=== PATIENT | male | born 1980 | race Caucasian/White ===

== ENCOUNTER 2021-01-21 20:19 | Emergency (ER) | payer OTHER ==
[2021-01-21] MEDS: SODIUM CHLORIDE 1,000 ML IV STA ×2 (20:40→22:00)
[2021-01-21 20:42] VITALS: BP 129/75; PULSE 88; TEMP 98.7; BMI 20.1
[2021-01-21] MEDS ORDERED: PANTOPRAZOLE SODIUM 40 MG in SODIUM CHLORIDE 100 ML IVPB ONE (20:42)
[2021-01-21] MEDS ORDERED: ONDANSETRON 4 MG/2 ML VIAL IVPUSH ONE (20:42)
[2021-01-21] MEDS ORDERED: HYDROmorphone HCL CARPU-JECT 1 MG/1 ML DISP.SYRIN IVPUSH ONE (20:42)
[2021-01-21] MEDS ORDERED: HYDROmorphone HCL/PF 1 MG/ML VIAL ONE (20:52)
[2021-01-21] MEDS ORDERED: PANTOPRAZOLE SODIUM 40 MG VIAL ONE (20:52)
[2021-01-21] MEDS ORDERED: ONDANSETRON 4 MG/2 ML VIAL ONE (20:52)
[2021-01-21 21:12] LABS: HEMATOCRIT 46.5 % (35.4-49); HEMOGLOBIN 16.4 GM/dl (11.7-16.9); MCH 35.3 pg (25.7-33.7); MCHC 35.1 g/dl (32.0-35.9); MEAN CELL VOLUME 100.6 fl (80-96); MEAN PLT VOLUME 7.7 fl (7.5-11.1); PLATELET COUNT 226 10^3/uL (134-434); RBC 4.63 M/mm3 (4.00-5.60); RDW 11.9 % (11.9-15.9); WHITE BLOOD COUNT 12.8 K/mm3 (4.0-10.8)
[2021-01-21 21:25] LABS: PLATELET ESTIMATE ADEQUATE
[2021-01-21] MEDS ORDERED: PROCHLORPERAZINE INJECTION 10 MG/2 ML VIAL IVPB ONE (21:26)
[2021-01-21] MEDS ORDERED: PROCHLORPERAZINE INJECTION 10 MG/2 ML VIAL ONE (21:27)
[2021-01-21 21:35] LABS: ALBUMIN 4.7 g/dl (3.4-5.0); BILIRUBIN,TOTAL 0.8 mg/dl (0.2-1); CALCIUM 9.5 mg/dl (8.5-10); CREATININE 0.8 mg/dl (0.55-1.3); TOT PROT 7.2 g/dl (6.4-8.2)
[2021-01-21 23:29] LABS: EPITHELIAL CELLS RARE /hpf
== END 2021-01-22 00:02 | disposition home or self-care (01) ==
LOC: FER 20:19
PROC: 3E033GC Introduction of Other Therapeutic Substance into Peripheral Vein, Percutaneous Approach (ICD-10-PCS; principal; 2021-01-21)
DX: K29.70 Gastritis, unspecified, without bleeding (principal)
CPT/HCPCS: 36415; 71260-TC; 74177-TC; 80053; 81003; 81015; 83690; 85025; 87086; 96365; 96375; 99285-25; C9803; U0003; U0005

== ENCOUNTER 2021-01-22 12:42 | Inpatient (IN) | payer OTHER ==
[2021-01-22 12:54] VITALS: TEMP 99
[2021-01-22] MEDS ORDERED: FAMOTIDINE 20 MG/50 ML IVPB 20 MG/50 ML MG IVPB ONE ×2 (13:17→13:24)
[2021-01-22] MEDS ORDERED: HYDROmorphone HCL CARPU-JECT 1 MG/1 ML DISP.SYRIN IVPB ONE ×2 (13:17→19:34)
[2021-01-22] MEDS ORDERED: LACTATED RINGERS SOLUTION 1000 ML INFUS.BAG IV ONE (13:17)
[2021-01-22] MEDS ORDERED: ONDANSETRON 4 MG/2 ML VIAL IVPUSH ONE (13:19)
[2021-01-22] MEDS ORDERED: HYDROmorphone HCL/PF 1 MG/ML VIAL ONE ×3 (13:23→19:35)
[2021-01-22] MEDS ORDERED: ONDANSETRON 4 MG/2 ML VIAL ONE (13:24)
[2021-01-22] MEDS ORDERED: PROCHLORPERAZINE INJECTION 10 MG/2 ML VIAL IVPB ONE ×2 (14:07→18:38)
[2021-01-22] MEDS ORDERED: PROCHLORPERAZINE INJECTION 10 MG/2 ML VIAL ONE (14:10)
[2021-01-22] MEDS ORDERED: HYDROmorphone HCL CARPU-JECT 1 MG/1 ML DISP.SYRIN IVPUSH ONE (14:38)
[2021-01-22 14:55] LABS: ACTIVATED PTT 24.7 SECONDS (25.2-36.5)
[2021-01-22 14:55] LABS: HEMATOCRIT 47.4 % (35.4-49); HEMOGLOBIN 16.5 GM/dl (11.7-16.9); MCH 35.1 pg (25.7-33.7); MCHC 34.8 g/dl (32.0-35.9); MEAN PLT VOLUME 7.4 fl (7.5-11.1); PLATELET COUNT 251 10^3/uL (134-434); RBC 4.69 M/mm3 (4.00-5.60); RDW 11.8 % (11.9-15.9); WHITE BLOOD COUNT 16.4 K/mm3 (4.0-10.8)
[2021-01-22 15:00] LABS: INR 1.02 (0.82-1.09); PROTHROMBIN TIME (PATIENT) 11.4 SEC (10.2-13.0)
[2021-01-22 15:02] LABS: ALBUMIN 4.6 g/dl (3.4-5.0); ALK PHOS 47 U/L (45-117); ANION GAP 13 MMOL/L (8-16); BILIRUBIN,TOTAL 0.6 mg/dl (0.2-1); CALCIUM 9.2 mg/dl (8.5-10); CHLORIDE 104 mmol/L (98-107); CO2 19 mmol/L (21-32); CREATININE 0.8 mg/dl (0.55-1.3); GLUCOSE,RANDOM 126 mg/dl (74-106); SGOT/AST 25 U/L (15-37); SGPT/ALT 20 U/L (13-61); SODIUM 136 mmol/L (136-145); TOT PROT 6.9 g/dl (6.4-8.2)
[2021-01-22] MEDS ORDERED: ALBUTEROL SO4 0.083% IH SOL 2.5 MG/3 ML VIAL.NEB. NEB ONE ×2 (15:19→15:20)
[2021-01-22 15:42] LABS: LIPASE 82 U/L (73-393)
[2021-01-22 16:11] LABS: PLATELET ESTIMATE ADEQUATE
[2021-01-22] MEDS ORDERED: ALPRAZolam 0.25 MG TABLET PO PRN (16:50)
[2021-01-22] MEDS ORDERED: ALBUTEROL SO4 HFA INHALER IH PRN (16:52)
[2021-01-22] MEDS ORDERED: PANTOPRAZOLE SODIUM 40 MG VIAL IVPUSH SCH (17:00)
[2021-01-22] MEDS ORDERED: ONDANSETRON 4 MG/2 ML VIAL IVPUSH PRN (17:05)
[2021-01-22] MEDS ORDERED: D5-1/2NS+20 MEQ KCL - 20 MEQ/1,000 ML INFUS.BAG IV SCH (17:15)
[2021-01-22] MEDS ORDERED: ENOXAPARIN NA (PORCINE) 40 MG/0.4 ML DISP.SYRIN SQ SCH (17:15)
[2021-01-22] MEDS ORDERED: ENOXAPARIN NA (PORCINE) 60 MG/0.6 ML DISP.SYRIN SQ ONE (17:36)
[2021-01-22] MEDS ORDERED: PANTOPRAZOLE SODIUM 40 MG VIAL ONE (17:36)
[2021-01-22 19:52] VITALS: BP 125/76; PULSE 54
[2021-01-22 22:08] VITALS: BMI 19.6
== END 2021-01-22 22:20 | disposition left against medical advice (07) | DRG 253 ==
LOC: FER 12:42 → FM/S 15:55 → UNDOADMIN 19:33 → UNDODISIN 22:20
PROVIDERS: ADMIT Internal Medicine; ATTEND Internal Medicine
DX: K92.0 Hematemesis (principal); K44.9 Diaphragmatic hernia without obstruction or gangrene; F17.210 Nicotine dependence, cigarettes, uncomplicated; D72.829 Elevated white blood cell count, unspecified; F41.9 Anxiety disorder, unspecified; K21.00 Gastro-esophageal reflux disease with esophagitis, without bleeding; F12.90 Cannabis use, unspecified, uncomplicated; R10.13 Epigastric pain
CPT/HCPCS: 36415; 71046-TC-FY; 74176-TC; 80053; 82550; 82553; 83690; 84484; 85025; 85610; 85730; 93005; 99285-25; C9803; U0003; U0005

== ENCOUNTER 2021-02-23 12:35 | Emergency (ER) | payer OTHER ==
[2021-02-23] MEDS ORDERED: SODIUM CHLORIDE 1,000 ML IV STA ×2 (12:39→14:55)
[2021-02-23] MEDS ORDERED: ONDANSETRON 4 MG/2 ML VIAL IVPB ONE (12:40)
[2021-02-23] MEDS ORDERED: ONDANSETRON 4 MG/2 ML VIAL ONE (12:50)
[2021-02-23] MEDS ORDERED: PANTOPRAZOLE SODIUM 40 MG in SODIUM CHLORIDE 100 ML IVPB ONE (12:58)
[2021-02-23] MEDS ORDERED: HYDROmorphone HCL CARPU-JECT 1 MG/1 ML DISP.SYRIN IVPUSH ONE ×3 (12:59→16:07)
[2021-02-23] MEDS ORDERED: PANTOPRAZOLE SODIUM 40 MG VIAL ONE (13:03)
[2021-02-23] MEDS ORDERED: HYDROmorphone HCL/PF 1 MG/ML VIAL ONE ×3 (13:03→16:18)
[2021-02-23] MEDS ORDERED: LORazepam 2 MG/ML SDV VIAL IVPUSH ONE ×2 (13:05→14:10)
[2021-02-23 13:09] VITALS: BMI 20.9
[2021-02-23] MEDS ORDERED: LORazepam 2 MG/ML SDV VIAL ONE ×2 (13:16→14:43)
[2021-02-23 13:19] LABS: HEMATOCRIT 48.5 % (35.4-49); HEMOGLOBIN 16.6 GM/dl (11.7-16.9); MCHC 34.2 g/dl (32.0-35.9); MEAN CELL VOLUME 102.2 fl (80-96); MEAN PLT VOLUME 6.8 fl (7.5-11.1); PLATELET COUNT 254 10^3/uL (134-434); RBC 4.74 M/mm3 (4.00-5.60); RDW 12.4 % (11.9-15.9); WHITE BLOOD COUNT 11.6 K/mm3 (4.0-10.8)
[2021-02-23 13:27] LABS: ALBUMIN 4.3 g/dl (3.4-5.0); BILIRUBIN,TOTAL 0.6 mg/dl (0.2-1); CALCIUM 9.1 mg/dl (8.5-10); CREATININE 0.9 mg/dl (0.55-1.3); TOT PROT 6.5 g/dl (6.4-8.2)
[2021-02-23 13:32] VITALS: TEMP 97.8
[2021-02-23 15:01] LABS: PLATELET ESTIMATE ADEQUATE
[2021-02-23 15:45] VITALS: BP 135/86; PULSE 78
[2021-02-23] MEDS ORDERED: PROCHLORPERAZINE INJECTION 10 MG/2 ML VIAL IVPB ONE (16:56)
[2021-02-23] MEDS ORDERED: PROCHLORPERAZINE INJECTION 10 MG/2 ML VIAL ONE (17:00)
== END 2021-02-23 18:03 | disposition home or self-care (01) ==
LOC: FER 12:35 → SUPCPDRO 12:35 → FER 18:03
PROC: 3E033NZ Introduction of Analgesics, Hypnotics, Sedatives into Peripheral Vein, Percutaneous Approach (ICD-10-PCS; principal; 2021-02-23)
PROC: 3E033NZ Introduction of Analgesics, Hypnotics, Sedatives into Peripheral Vein, Percutaneous Approach (ICD-10-PCS; 2021-02-23)
PROC: 3E033NZ Introduction of Analgesics, Hypnotics, Sedatives into Peripheral Vein, Percutaneous Approach (ICD-10-PCS; 2021-02-23)
PROC: 3E033NZ Introduction of Analgesics, Hypnotics, Sedatives into Peripheral Vein, Percutaneous Approach (ICD-10-PCS; 2021-02-23)
PROC: 3E033NZ Introduction of Analgesics, Hypnotics, Sedatives into Peripheral Vein, Percutaneous Approach (ICD-10-PCS; 2021-02-23)
PROC: 3E033GC Introduction of Other Therapeutic Substance into Peripheral Vein, Percutaneous Approach (ICD-10-PCS; 2021-02-23)
PROC: 3E033GC Introduction of Other Therapeutic Substance into Peripheral Vein, Percutaneous Approach (ICD-10-PCS; 2021-02-23)
PROC: 3E033GC Introduction of Other Therapeutic Substance into Peripheral Vein, Percutaneous Approach (ICD-10-PCS; 2021-02-23)
PROC: 3E0337Z Introduction of Electrolytic and Water Balance Substance into Peripheral Vein, Percutaneous Approach (ICD-10-PCS; 2021-02-23)
PROC: 3E0337Z Introduction of Electrolytic and Water Balance Substance into Peripheral Vein, Percutaneous Approach (ICD-10-PCS; 2021-02-23)
DX: R11.2 Nausea with vomiting, unspecified (principal)
CPT/HCPCS: 36415; 71046-TC-FY; 80053; 83690; 85025; 99284-25; C9803; U0003; U0005

== ENCOUNTER 2021-02-24 14:35 | Emergency (ER) | payer OTHER ==
[2021-02-24 14:44] VITALS: TEMP 97.7; BMI 20.9
[2021-02-24] MEDS ORDERED: HYDROmorphone HCL CARPU-JECT 1 MG/1 ML DISP.SYRIN IVPUSH ONE ×2 (14:55→16:01)
[2021-02-24] MEDS ORDERED: ONDANSETRON 4 MG/2 ML VIAL IVPB ONE (14:55)
[2021-02-24] MEDS ORDERED: SODIUM CHLORIDE 1,000 ML IV STA (14:55)
[2021-02-24] MEDS ORDERED: HYDROmorphone HCL/PF 1 MG/ML VIAL ONE ×2 (15:12→16:14)
[2021-02-24] MEDS ORDERED: ONDANSETRON 4 MG/2 ML VIAL ONE (15:12)
[2021-02-24 15:35] LABS: HEMOGLOBIN 17.2 GM/dl (11.7-16.9); MCHC 35.1 g/dl (32.0-35.9); MEAN CELL VOLUME 102.3 fl (80-96); MEAN PLT VOLUME 7.5 fl (7.5-11.1); PLATELET COUNT 256 10^3/uL (134-434); RBC 4.79 M/mm3 (4.00-5.60); RDW 12.3 % (11.9-15.9); WHITE BLOOD COUNT 12.9 K/mm3 (4.0-10.8)
[2021-02-24] MEDS ORDERED: PROCHLORPERAZINE INJECTION 10 MG/2 ML VIAL IVPB ONE (15:36)
[2021-02-24 15:38] LABS: ADD RBC MORPHOLOGY NO
[2021-02-24] MEDS ORDERED: PROCHLORPERAZINE INJECTION 10 MG/2 ML VIAL ONE (15:43)
[2021-02-24] MEDS ORDERED: PANTOPRAZOLE SODIUM 40 MG VIAL IVPUSH ONE (16:01)
[2021-02-24 16:08] VITALS: BP 131/87; PULSE 87
[2021-02-24] MEDS ORDERED: PANTOPRAZOLE SODIUM 40 MG VIAL ONE (16:14)
[2021-02-24 16:43] LABS: PLATELET ESTIMATE ADEQUATE
[2021-02-24] MEDS ORDERED: LIDOCAINE VISCOUS 2% ORAL/TOP 15 ML UNIT-DOSE CUP ONE (16:49)
[2021-02-24] MEDS ORDERED: LIDOCAINE 2.5%/PRILOCAINE 2.5% (5 Gram/TUBE) TP ONE (16:49)
[2021-02-24 16:54] LABS: ALBUMIN 4.6 g/dl (3.4-5.0); BILIRUBIN,TOTAL 0.7 mg/dl (0.2-1); CALCIUM 9.3 mg/dl (8.5-10); CREATININE 0.8 mg/dl (0.55-1.3)
== END 2021-02-24 17:25 | disposition home or self-care (01) ==
LOC: FER 14:35
DX: K22.4 Dyskinesia of esophagus (principal)
CPT/HCPCS: 36415; 80053; 83690; 85025; 99284-25; C9803; U0003; U0005

== ENCOUNTER 2021-02-25 03:56 | Emergency (ER) | payer OTHER ==
[2021-02-25 04:13] VITALS: BP 149/99; PULSE 80; TEMP 98.6; BMI 20.3
[2021-02-25] MEDS ORDERED: morphine SULFATE IMMEDIATE RELEASE 30 MG TAB PO ONE (04:19)
[2021-02-25] MEDS ORDERED: diphenhydrAMINE HCL 25 MG CAPSULE (FP) PO ONE ×3 (04:19→04:21)
[2021-02-25] MEDS ORDERED: morphine SULFATE IMMEDIATE RELEASE 30 MG TAB ONE (04:19)
[2021-02-25] MEDS ORDERED: HYDROmorphone HCL CARPU-JECT 2 MG/1 ML DISP.SYRIN IM ONE (04:30)
[2021-02-25] MEDS ORDERED: HYDROmorphone HCl 2 MG/ML VIAL ONE (04:31)
== END 2021-02-25 05:23 | disposition home or self-care (01) ==
LOC: FER 03:56
PROC: 3E023NZ Introduction of Analgesics, Hypnotics, Sedatives into Muscle, Percutaneous Approach (ICD-10-PCS; principal; 2021-02-25)
DX: R11.2 Nausea with vomiting, unspecified (principal)
CPT/HCPCS: 99284-25

== ENCOUNTER 2021-03-11 18:55 | Emergency (ER) | payer OTHER ==
[2021-03-11 19:03] VITALS: TEMP 97.4; BMI 20.3
[2021-03-11] MEDS ORDERED: SODIUM CHLORIDE 1,000 ML ONE (19:22)
[2021-03-11] MEDS ORDERED: ONDANSETRON 4 MG/2 ML VIAL IVPB ONE (19:22)
[2021-03-11] MEDS ORDERED: PANTOPRAZOLE SODIUM 40 MG VIAL IVPUSH ONE (19:23)
[2021-03-11] MEDS ORDERED: LIDOCAINE VISCOUS 2% ORAL/TOP 15 ML UNIT-DOSE CUP MM ONE (19:28)
[2021-03-11] MEDS ORDERED: FAMOTIDINE 20 MG/50 ML IVPB 20 MG/50 ML MG IVPB ONE ×2 (19:28→19:33)
[2021-03-11] MEDS ORDERED: LIDOCAINE VISCOUS 2% ORAL/TOP 15 ML UNIT-DOSE CUP ONE (19:33)
[2021-03-11] MEDS ORDERED: ONDANSETRON 4 MG/2 ML VIAL ONE (19:33)
[2021-03-11] MEDS ORDERED: PANTOPRAZOLE SODIUM 40 MG VIAL ONE (19:33)
[2021-03-11] MEDS ORDERED: HYDROmorphone HCL CARPU-JECT 1 MG/1 ML DISP.SYRIN IVPUSH ONE ×2 (19:41→22:42)
[2021-03-11] MEDS ORDERED: HYDROmorphone HCL/PF 1 MG/ML VIAL ONE ×2 (19:43→22:42)
[2021-03-11 19:47] LABS: MCHC 35.6 g/dl (32.0-35.9); MEAN PLT VOLUME 6.8 fl (7.5-11.1); RDW 12.1 % (11.9-15.9)
[2021-03-11 19:50] LABS: EOS % 1.9 % (0-4.5); HEMOGLOBIN 17.8 GM/dl (11.7-16.9); LYMPH % 15.1 % (8-40); MCH 36.6 pg (25.7-33.7); MEAN CELL VOLUME 102.8 fl (80-96); MONO % 5.1 % (3.8-10.2); NEUT % 73.9 % (42.8-82.8); PLATELET COUNT 279 10^3/uL (134-434); RBC 4.86 M/mm3 (4.00-5.60); WHITE BLOOD COUNT 13.7 K/mm3 (4.0-10.8)
[2021-03-11 19:57] LABS: ALBUMIN 4.5 g/dl (3.4-5.0); BILIRUBIN,TOTAL 0.7 mg/dl (0.2-1); CALCIUM 9.3 mg/dl (8.5-10); CREATININE 0.8 mg/dl (0.55-1.3)
[2021-03-11] MEDS ORDERED: PROCHLORPERAZINE INJECTION 10 MG/2 ML VIAL IVPB ONE (20:09)
[2021-03-11] MEDS ORDERED: PROCHLORPERAZINE INJECTION 10 MG/2 ML VIAL ONE (20:10)
[2021-03-11] MEDS ORDERED: SODIUM CHLORIDE 1,000 ML IV ONE (21:06)
[2021-03-11] MEDS ORDERED: ACETAMINOPHEN 500 MG TABLET (FP) PO ONE (22:11)
[2021-03-11] MEDS ORDERED: ACETAMINOPHEN 1000 MG/100 ML VIAL IVPB ONE (22:12)
[2021-03-11 22:15] VITALS: BP 136/92; PULSE 81
[2021-03-11] MEDS ORDERED: ACETAMINOPHEN INJECTION 100 ML IVPB ONE (22:16)
== END 2021-03-11 23:51 | disposition home or self-care (01) ==
LOC: FER 18:55
PROC: 3E033GC Introduction of Other Therapeutic Substance into Peripheral Vein, Percutaneous Approach (ICD-10-PCS; principal; 2021-03-11)
DX: K20.0 Eosinophilic esophagitis (principal); R11.2 Nausea with vomiting, unspecified
CPT/HCPCS: 36415; 80053; 83690; 85025; 93005; 96361; 96365; 96375; 96376; 99284-25; C9803; J0131; U0003; U0005

== ENCOUNTER 2021-03-14 14:36 | Emergency (ER) | payer OTHER ==
[2021-03-14] MEDS ORDERED: SODIUM CHLORIDE 0.9% 500 ML INFUS.BAG IV ONE ×2 (14:49→16:59)
[2021-03-14] MEDS ORDERED: ACETAMINOPHEN 1000 MG/100 ML VIAL IVPB ONE (14:49)
[2021-03-14] MEDS ORDERED: ONDANSETRON 4 MG/2 ML VIAL IVPUSH ONE (14:49)
[2021-03-14] MEDS ORDERED: FAMOTIDINE 20 MG/50 ML IVPB 20 MG/50 ML MG IVPB ONE ×2 (14:49→15:09)
[2021-03-14 14:53] VITALS: BP 139/93; PULSE 82; TEMP 97.7
[2021-03-14] MEDS ORDERED: ONDANSETRON 4 MG/2 ML VIAL ONE (14:54)
[2021-03-14] MEDS ORDERED: ACETAMINOPHEN INJECTION 100 ML IVPB ONE (14:54)
[2021-03-14 15:21] LABS: HEMATOCRIT 49.2 % (35.4-49); HEMOGLOBIN 16.8 GM/dl (11.7-16.9); MCH 35.6 pg (25.7-33.7); MCHC 34.2 g/dl (32.0-35.9); MEAN PLT VOLUME 6.9 fl (7.5-11.1); PLATELET COUNT 264 10^3/uL (134-434); RBC 4.73 M/mm3 (4.00-5.60); RDW 12.2 % (11.9-15.9); WHITE BLOOD COUNT 10.4 K/mm3 (4.0-10.8)
[2021-03-14] MEDS ORDERED: HYDROmorphone HCL CARPU-JECT 1 MG/1 ML DISP.SYRIN IVPUSH ONE ×2 (15:28→16:42)
[2021-03-14] MEDS ORDERED: HYDROmorphone HCL/PF 1 MG/ML VIAL ONE ×2 (15:29→16:43)
[2021-03-14 15:39] VITALS: BMI 19.0
[2021-03-14] MEDS ORDERED: LIDOCAINE VISCOUS 2% ORAL/TOP 15 ML UNIT-DOSE CUP MM ONE (15:42)
[2021-03-14] MEDS ORDERED: LIDOCAINE VISCOUS 2% ORAL/TOP 15 ML UNIT-DOSE CUP ONE (15:45)
[2021-03-14 15:47] LABS: ALBUMIN 4.3 g/dl (3.4-5.0); BILIRUBIN,TOTAL 0.6 mg/dl (0.2-1); CALCIUM 9.4 mg/dl (8.5-10); CREATININE 0.7 mg/dl (0.55-1.3); TOT PROT 6.6 g/dl (6.4-8.2)
[2021-03-14] MEDS ORDERED: MAGNESIUM SULF 50% (8.12 MEQ/2 ML-1 GM VIAL) IVPB ONE (16:56)
[2021-03-14] MEDS ORDERED: KCL 10 MEQ IVPB 10 MEQ/100 ML INFUS.BAG IVPB SCH (17:00)
[2021-03-14] MEDS ORDERED: MAGNESIUM 1GM/D5W - 1 GM/100 ML IVPB IVPB ONE (17:00)
[2021-03-14 18:23] LABS: PLATELET ESTIMATE ADEQUATE
== END 2021-03-14 17:48 | disposition left against medical advice (07) ==
LOC: FER 14:36
PROC: 3E0333Z Introduction of Anti-inflammatory into Peripheral Vein, Percutaneous Approach (ICD-10-PCS; principal; 2021-03-14)
PROC: 3E033GC Introduction of Other Therapeutic Substance into Peripheral Vein, Percutaneous Approach (ICD-10-PCS; 2021-03-14)
PROC: 3E033NZ Introduction of Analgesics, Hypnotics, Sedatives into Peripheral Vein, Percutaneous Approach (ICD-10-PCS; 2021-03-14)
PROC: 3E033NZ Introduction of Analgesics, Hypnotics, Sedatives into Peripheral Vein, Percutaneous Approach (ICD-10-PCS; 2021-03-14)
PROC: 3E033GC Introduction of Other Therapeutic Substance into Peripheral Vein, Percutaneous Approach (ICD-10-PCS; 2021-03-14)
PROC: 3E033GC Introduction of Other Therapeutic Substance into Peripheral Vein, Percutaneous Approach (ICD-10-PCS; 2021-03-14)
DX: R11.10 Vomiting, unspecified (principal); R10.13 Epigastric pain
CPT/HCPCS: 36415; 71045-TC-FY; 80053; 83690; 83735; 84484; 85025; 93005; 99285-25; J0131

== ENCOUNTER 2021-03-17 19:20 | Emergency (ER) | payer OTHER ==
[2021-03-17] MEDS ORDERED: morphine SULFATE IMMEDIATE RELEASE 30 MG TAB PO ONE (19:22)
[2021-03-17] MEDS ORDERED: diphenhydrAMINE HCL 25 MG CAPSULE (FP) PO ONE (19:22)
[2021-03-17 19:32] VITALS: BP 137/108; PULSE 126; TEMP 98.7; BMI 19.6
[2021-03-17] MEDS ORDERED: morphine SULFATE IMMEDIATE RELEASE 30 MG TAB ONE (19:36)
[2021-03-17] MEDS ORDERED: diphenhydrAMINE HCL 50 MG CAPSULE ONE (19:36)
== END 2021-03-17 19:55 | disposition home or self-care (01) ==
LOC: FER 19:20
DX: K23 Disorders of esophagus in diseases classified elsewhere (principal)
CPT/HCPCS: 99283-25

== ENCOUNTER 2021-05-17 13:16 | Emergency (ER) | payer OTHER ==
[2021-05-17 13:32] VITALS: BP 144/80; PULSE 59; TEMP 97.8; BMI 19.6
[2021-05-17] MEDS ORDERED: ACETAMINOPHEN 1000 MG/100 ML BAG IVPB ONE (13:47)
[2021-05-17] MEDS ORDERED: SODIUM CHLORIDE 0.9% 500 ML INFUS.BAG IV ONE ×2 (13:47→17:59)
[2021-05-17] MEDS ORDERED: ONDANSETRON 4 MG/2 ML VIAL IVPB ONE (13:48)
[2021-05-17] MEDS ORDERED: MAG HYDROX/AL HYDROX/SIMETH -MYLANTA- ORAL SUSPENSION PO ONE (13:53)
[2021-05-17] MEDS ORDERED: FAMOTIDINE 20 MG/50 ML IVPB 20 MG/50 ML MG IVPB ONE ×2 (13:53→14:06)
[2021-05-17] MEDS ORDERED: LIDOCAINE VISCOUS 2% ORAL/TOP 15 ML UNIT-DOSE CUP MM ONE (13:54)
[2021-05-17] MEDS ORDERED: ONDANSETRON 4 MG/2 ML VIAL ONE (14:05)
[2021-05-17] MEDS ORDERED: LIDOCAINE VISCOUS 2% ORAL/TOP 15 ML UNIT-DOSE CUP ONE (14:05)
[2021-05-17] MEDS ORDERED: ACETAMINOPHEN INJECTION 100 ML IVPB ONE (14:05)
[2021-05-17] MEDS ORDERED: MAG HYDROX/AL HYDROX/SIMETH 30 ML UNIT-DOSE CUP ONE (14:05)
[2021-05-17] MEDS ORDERED: LORazepam 2 MG/ML SDV VIAL IVPUSH ONE (14:31)
[2021-05-17 14:45] LABS: INR 0.98 (0.83-1.09); PROTHROMBIN TIME (PATIENT) 11.3 SEC (9.7-13.0)
[2021-05-17 14:46] LABS: ACTIVATED PTT 24.1 SECONDS (25.2-36.5)
[2021-05-17 14:56] LABS: CHLORIDE 104 mmol/L (98-107); SODIUM 136 mmol/L (136-145)
[2021-05-17 14:58] LABS: ALBUMIN 4.3 g/dl (3.4-5.0); ANION GAP 9 MMOL/L (8-16); CALCIUM 9.4 mg/dL (8.5-10.1); CO2 22 mmol/L (21-32); GLUCOSE,RANDOM 167 mg/dL (74-106)
[2021-05-17 14:59] LABS: BLOOD UREA NITROGEN 13.1 mg/dL (7-18); LIPASE 78 U/L (73-393)
[2021-05-17 15:01] LABS: CREATININE 0.7 mg/dL (0.55-1.3)
[2021-05-17 15:02] LABS: SGOT/AST 26 U/L (15-37); SGPT/ALT 34 U/L (13-61)
[2021-05-17] MEDS ORDERED: HALOPERIDOL DECANOATE 500 MG/5ML MDV IM ONE ×2 (15:02→15:10)
[2021-05-17 15:03] LABS: BILIRUBIN,TOTAL 0.9 mg/dL (0.2-1); TOT PROT 6.9 g/dl (6.4-8.2)
[2021-05-17 15:04] LABS: ALK PHOS 67 U/L (45-117)
[2021-05-17] MEDS ORDERED: HALOPERIDOL LACTATE 5 MG/ML ONE (15:08)
[2021-05-17 15:20] LABS: BASO % 0.1 % (0-2.0); EOS % 0.1 % (0-4.5); HEMATOCRIT 47.8 % (35.4-49); HEMOGLOBIN 16.3 GM/dL (11.7-16.9); LYMPH % 7.7 % (8-40); MCH 34.3 pg (25.7-33.7); MCHC 34.1 g/dl (32.0-35.9); MEAN CELL VOLUME 100.6 fl (80-96); MEAN PLT VOLUME 7.3 fl (7.5-11.1); MONO % 2.1 % (3.8-10.2); PLATELET COUNT 262 10^3/uL (134-434); RBC 4.75 M/mm3 (4.00-5.60); RDW 12.2 % (11.9-15.9); WHITE BLOOD COUNT 16.4 K/mm3 (4.0-10.0)
[2021-05-17 20:11] LABS: URINE APPEARANCE CLEAR; URINE BILIRUBIN NEGATIVE (NEGATIVE); URINE COLOR YELLOW; URINE GLUCOSE (UA) NEGATIVE (NEGATIVE)
[2021-05-17 20:12] LABS: PH,URINE 8.5 (5.0-8.0); URINE KETONE 40 mg/dl (NEGATIVE); URINE LEUK ESTERASE NEGATIVE (NEGATIVE); URINE NITRITE NEGATIVE (NEGATIVE); URINE PROTEIN NEGATIVE (NEGATIVE); URINE UROBILINOGEN 0.2 mg/dL (0.2-1.0)
== END 2021-05-17 20:20 | disposition home or self-care (01) ==
LOC: JER 13:16
PROC: 3E033GC Introduction of Other Therapeutic Substance into Peripheral Vein, Percutaneous Approach (ICD-10-PCS; principal; 2021-05-17)
DX: R11.2 Nausea with vomiting, unspecified (principal)
CPT/HCPCS: 36415; 71045-TC-FY; 71250-TC; 74177-TC; 80053; 81003; 82550; 83690; 84484; 85025; 85610; 85730; 86850; 86900; 86901; 87086; 93005; 93010; 99285-25; C9803; J0131; Q9967; U0003; U0005

== ENCOUNTER 2021-05-31 09:19 | Emergency (ER) | payer OTHER ==
[2021-05-31] MEDS ORDERED: ONDANSETRON 4 MG/2 ML VIAL IVPUSH ONE (09:48)
[2021-05-31] MEDS ORDERED: FAMOTIDINE 20 MG/50 ML IVPB 20 MG/50 ML MG IVPB ONE ×2 (09:48→10:23)
[2021-05-31] MEDS ORDERED: SODIUM CHLORIDE 0.9% 500 ML INFUS.BAG IV ONE (09:48)
[2021-05-31 09:53] VITALS: BMI 22.6
[2021-05-31] MEDS ORDERED: HALOPERIDOL LACTATE 5 MG/ML IM ONE ×2 (10:15→11:03)
[2021-05-31] MEDS ORDERED: HALOPERIDOL LACTATE 5 MG/ML ONE ×2 (10:23→11:19)
[2021-05-31 10:34] LABS: BASO % 0.5 % (0-2.0); EOS % 0.4 % (0-4.5); HEMATOCRIT 48.3 % (35.4-49); HEMOGLOBIN 16.8 GM/dL (11.7-16.9); LYMPH % 18.4 % (8-40); MCH 35.2 pg (25.7-33.7); MCHC 34.9 g/dl (32.0-35.9); MEAN CELL VOLUME 100.8 fl (80-96); MEAN PLT VOLUME 6.8 fl (7.5-11.1); MONO % 2.7 % (3.8-10.2); PLATELET COUNT 279 10^3/uL (134-434); RBC 4.79 M/mm3 (4.00-5.60); RDW 12.6 % (11.9-15.9); WHITE BLOOD COUNT 8.7 K/mm3 (4.0-10.0)
[2021-05-31 10:44] LABS: INR 0.97 (0.83-1.09); PROTHROMBIN TIME (PATIENT) 11.1 SEC (9.7-13.0)
[2021-05-31 10:47] LABS: ACTIVATED PTT 22.9 SECONDS (25.2-36.5)
[2021-05-31 11:02] LABS: BLOOD UREA NITROGEN 5.6 mg/dL (7-18); CALCIUM 9.2 mg/dL (8.5-10.1)
[2021-05-31 11:03] LABS: ALBUMIN 4.2 g/dl (3.4-5.0)
[2021-05-31 11:06] LABS: CREATININE 0.8 mg/dL (0.55-1.3)
[2021-05-31 11:07] LABS: BILIRUBIN,TOTAL 0.5 mg/dL (0.2-1); TOT PROT 7.1 g/dl (6.4-8.2)
[2021-05-31 14:27] VITALS: BP 121/73; PULSE 98; TEMP 98.1
== END 2021-05-31 16:00 | disposition home or self-care (01) ==
LOC: JER 09:19
PROC: 3E033GC Introduction of Other Therapeutic Substance into Peripheral Vein, Percutaneous Approach (ICD-10-PCS; principal; 2021-05-31)
PROC: 3E023NZ Introduction of Analgesics, Hypnotics, Sedatives into Muscle, Percutaneous Approach (ICD-10-PCS; 2021-05-31)
PROC: 3E023NZ Introduction of Analgesics, Hypnotics, Sedatives into Muscle, Percutaneous Approach (ICD-10-PCS; 2021-05-31)
PROC: 3E033GC Introduction of Other Therapeutic Substance into Peripheral Vein, Percutaneous Approach (ICD-10-PCS; 2021-05-31)
DX: R11.10 Vomiting, unspecified (principal)
CPT/HCPCS: 36415; 71045-TC-FY; 80053; 85025; 85610; 85730; 86850; 86900; 86901; 93005; 93010; 99285-25

== ENCOUNTER 2021-08-22 15:19 | Emergency (ER) | payer OTHER ==
[2021-08-22 15:41] VITALS: TEMP 98.1; BMI 20.9
[2021-08-22] MEDS ORDERED: ONDANSETRON 4 MG/2 ML VIAL IVPB ONE ×2 (16:51→17:18)
[2021-08-22] MEDS ORDERED: ACETAMINOPHEN 1000 MG/100 ML BAG IVPB ONE (16:52)
[2021-08-22] MEDS ORDERED: SODIUM CHLORIDE 0.9% 500 ML INFUS.BAG IV ONE ×2 (16:52→21:02)
[2021-08-22] MEDS ORDERED: FAMOTIDINE 20 MG/50 ML IVPB 20 MG/50 ML MG IVPB ONE (16:54)
[2021-08-22] MEDS ORDERED: MAG HYDROX/AL HYDROX/SIMETH 30 ML UNIT-DOSE CUP PO ONE (17:03)
[2021-08-22] MEDS ORDERED: PANTOPRAZOLE SODIUM 40 MG VIAL IVPUSH ONE (17:04)
[2021-08-22] MEDS ORDERED: ACETAMINOPHEN INJECTION 100 ML IVPB ONE (17:09)
[2021-08-22] MEDS ORDERED: PANTOPRAZOLE SODIUM 40 MG VIAL ONE (17:09)
[2021-08-22] MEDS ORDERED: FAMOTIDINE 10 MG/ML VIAL IVPB ONE (17:09)
[2021-08-22] MEDS ORDERED: MAG HYDROX/AL HYDROX/SIMETH 30 ML UNIT-DOSE CUP ONE (17:09)
[2021-08-22] MEDS ORDERED: MIDAZOLAM HCL 2 MG/2 ML SINGLE DOSE VIAL IVPUSH ONE ×4 (17:16→17:49)
[2021-08-22] MEDS ORDERED: MIDAZOLAM HCL 2 MG/2 ML SINGLE DOSE VIAL ONE ×3 (17:18→17:57)
[2021-08-22] MEDS ORDERED: ONDANSETRON 4 MG/2 ML VIAL ONE (17:31)
[2021-08-22 17:47] LABS: BASO % 0.3 % (0-2.0); EOS % 0.1 % (0-4.5); HEMATOCRIT 51.5 % (35.4-49); HEMOGLOBIN 17.8 GM/dL (11.7-16.9); LYMPH % 13.2 % (8-40); MCH 34.8 pg (25.7-33.7); MCHC 34.7 g/dl (32.0-35.9); MEAN CELL VOLUME 100.4 fl (80-96); MEAN PLT VOLUME 7.4 fl (7.5-11.1); MONO % 6.4 % (3.8-10.2); RBC 5.12 M/mm3 (4.00-5.60); RDW 12.5 % (11.9-15.9); WHITE BLOOD COUNT 10.8 K/mm3 (4.0-10.0)
[2021-08-22] MEDS ORDERED: diazePAM CARPU-JECT 10 MG/2 ML DISP.SYRIN IVPUSH ONE ×3 (17:49→19:28)
[2021-08-22] MEDS ORDERED: diazePAM CARPU-JECT 10 MG/2 ML DISP.SYRIN ONE ×2 (17:54→19:33)
[2021-08-22 18:10] LABS: PLATELET COUNT 317 10^3/uL (134-434); PLATELET ESTIMATE ADEQUATE
[2021-08-22 18:16] LABS: CHLORIDE 101 mmol/L (98-107); SODIUM 134 mmol/L (136-145)
[2021-08-22 18:18] LABS: CALCIUM 10.2 mg/dL (8.5-10.1)
[2021-08-22 18:19] LABS: ALBUMIN 4.8 g/dl (3.4-5.0); BLOOD UREA NITROGEN 10.6 mg/dL (7-18); CO2 22 mmol/L (21-32); GLUCOSE,RANDOM 153 mg/dL (74-106); LIPASE 45 U/L (73-393); MAGNESIUM 2.3 mg/dL (1.8-2.4)
[2021-08-22 18:22] LABS: CREATININE 1.3 mg/dL (0.55-1.3); SGOT/AST 69 U/L (15-37); SGPT/ALT 62 U/L (13-61)
[2021-08-22 18:23] LABS: BILIRUBIN,TOTAL 0.9 mg/dL (0.2-1); TOT PROT 8.3 g/dl (6.4-8.2)
[2021-08-22 18:25] LABS: ALK PHOS 62 U/L (45-117)
[2021-08-22 18:33] LABS: ANION GAP 11 MMOL/L (8-16)
[2021-08-22] MEDS ORDERED: PROCHLORPERAZINE INJECTION 10 MG/2 ML VIAL ONE ×2 (20:05→23:00)
[2021-08-22] MEDS ORDERED: PROCHLORPERAZINE INJECTION 10 MG/2 ML VIAL IVPB ONE (20:10)
[2021-08-22 20:38] LABS: ALBUMIN 4.5 g/dl (3.4-5.0); BLOOD UREA NITROGEN 8.9 mg/dL (7-18); CALCIUM 9.5 mg/dL (8.5-10.1)
[2021-08-22 20:43] LABS: BILIRUBIN,TOTAL 0.7 mg/dL (0.2-1); TOT PROT 7.4 g/dl (6.4-8.2)
[2021-08-22] MEDS ORDERED: PROCHLORPERAZINE INJECTION 10 MG/2 ML VIAL IM ONE (22:15)
[2021-08-22] MEDS ORDERED: KETOROLAC TROMETHAMINE 30 MG/1 ML VIAL IVPUSH ONE (22:15)
[2021-08-22] MEDS ORDERED: KETOROLAC TROMETHAMINE 15 MG/ML VIAL ONE (23:00)
[2021-08-23 07:40] VITALS: BP 138/87; PULSE 86
== END 2021-08-22 23:16 | disposition home or self-care (01) ==
LOC: JER 15:19
PROC: 3E0333Z Introduction of Anti-inflammatory into Peripheral Vein, Percutaneous Approach (ICD-10-PCS; principal; 2021-08-22)
PROC: 3E033NZ Introduction of Analgesics, Hypnotics, Sedatives into Peripheral Vein, Percutaneous Approach (ICD-10-PCS; 2021-08-22)
PROC: 3E033NZ Introduction of Analgesics, Hypnotics, Sedatives into Peripheral Vein, Percutaneous Approach (ICD-10-PCS; 2021-08-22)
PROC: 3E033GC Introduction of Other Therapeutic Substance into Peripheral Vein, Percutaneous Approach (ICD-10-PCS; 2021-08-22)
PROC: 3E033NZ Introduction of Analgesics, Hypnotics, Sedatives into Peripheral Vein, Percutaneous Approach (ICD-10-PCS; 2021-08-22)
PROC: 3E033NZ Introduction of Analgesics, Hypnotics, Sedatives into Peripheral Vein, Percutaneous Approach (ICD-10-PCS; 2021-08-22)
DX: R11.2 Nausea with vomiting, unspecified (principal); R10.13 Epigastric pain; M79.10 Myalgia, unspecified site
CPT/HCPCS: 36415; 71045-TC-FY; 71260-TC; 74177-TC; 80053; 83690; 83735; 84100; 84443; 84484; 85025; 93005; 93010; 99285-25; Q9967

== ENCOUNTER 2021-11-14 05:50 | Emergency (ER) | payer OTHER ==
[2021-11-14] MEDS ORDERED: SODIUM CHLORIDE 1,000 ML IV ONE (05:54)
[2021-11-14] MEDS ORDERED: HYDROmorphone HCL CARPU-JECT 1 MG/1 ML DISP.SYRIN IVPUSH ONE (05:54)
[2021-11-14] MEDS ORDERED: ONDANSETRON 4 MG/2 ML VIAL IVPB ONE (05:54)
[2021-11-14] MEDS ORDERED: PANTOPRAZOLE SODIUM 40 MG VIAL IVPUSH ONE (05:55)
[2021-11-14 06:20] VITALS: TEMP 97.6; BMI 46.3
[2021-11-14] MEDS ORDERED: diazePAM CARPU-JECT 10 MG/2 ML DISP.SYRIN IVPUSH ONE (06:29)
[2021-11-14] MEDS ORDERED: diazePAM CARPU-JECT 10 MG/2 ML DISP.SYRIN ONE (06:30)
[2021-11-14] MEDS ORDERED: HALOPERIDOL LACTATE 5 MG/ML IM ONE (06:39)
[2021-11-14] MEDS ORDERED: HALOPERIDOL LACTATE 5 MG/ML ONE (06:42)
[2021-11-14 07:05] LABS: BASO % 0.8 % (0-2.0); EOS % 4.5 % (0-4.5); HEMATOCRIT 49.4 % (35.4-49); HEMOGLOBIN 17.3 GM/dL (11.7-16.9); LYMPH % 14.3 % (8-40); MCH 34.5 pg (25.7-33.7); MEAN CELL VOLUME 98.5 fl (80-96); MONO % 4.8 % (3.8-10.2); NEUT % 75.6 % (42.8-82.8); PLATELET COUNT 276 10^3/uL (134-434); RBC 5.01 M/mm3 (4.00-5.60); RDW 13.8 % (11.9-15.9); WHITE BLOOD COUNT 13.7 K/mm3 (4.0-10.0)
[2021-11-14 07:19] LABS: INR 1.06 (0.83-1.09); PROTHROMBIN TIME (PATIENT) 12.2 SEC (9.7-13.0)
[2021-11-14 07:27] LABS: ALBUMIN 4.1 g/dl (3.4-5.0)
[2021-11-14 07:28] LABS: BLOOD UREA NITROGEN 8.2 mg/dL (7-18)
[2021-11-14 07:30] LABS: CREATININE 0.8 mg/dL (0.55-1.3)
[2021-11-14 07:32] LABS: BILIRUBIN,TOTAL 0.4 mg/dL (0.2-1)
[2021-11-14 09:04] VITALS: BP 131/96; PULSE 88; RESP 16
== END 2021-11-14 09:20 | disposition home or self-care (01) ==
LOC: FER 05:50
PROC: 3E033GC Introduction of Other Therapeutic Substance into Peripheral Vein, Percutaneous Approach (ICD-10-PCS; principal; 2021-11-14)
PROC: 3E023GC Introduction of Other Therapeutic Substance into Muscle, Percutaneous Approach (ICD-10-PCS; principal; 2021-11-14)
DX: R10.13 Epigastric pain (principal)
CPT/HCPCS: 36415; 80053; 82550; 83605; 83690; 84484; 85025; 85610; 86850; 86900; 86901; 93005; 99284-25

== ENCOUNTER 2021-12-12 09:33 | Emergency (ER) | payer OTHER ==
[2021-12-12] MEDS ORDERED: SODIUM CHLORIDE 1,000 ML IV STA (09:46)
[2021-12-12] MEDS ORDERED: ONDANSETRON 4 MG/2 ML VIAL IVPUSH ONE (09:46)
[2021-12-12] MEDS ORDERED: FAMOTIDINE 20 MG/50 ML IVPB 20 MG/50 ML MG IVPB ONE ×2 (09:46→09:49)
[2021-12-12] MEDS ORDERED: ONDANSETRON 4 MG/2 ML VIAL ONE (09:49)
[2021-12-12] MEDS ORDERED: HALOPERIDOL LACTATE 5 MG/ML IM ONE (10:22)
[2021-12-12] MEDS ORDERED: HALOPERIDOL LACTATE 5 MG/ML ONE (10:28)
[2021-12-12 10:32] LABS: HEMOGLOBIN 17.8 G/dL (11.7-16.9); MCH 36.4 pg (25.7-33.7); MCHC 34.9 g/dl (32.0-35.9); MEAN CELL VOLUME 104.3 fl (80-96); MEAN PLT VOLUME 6.3 fl (7.5-11.1); PLATELET COUNT 227.1 10^3/uL (134-434); RBC 4.89 10^6/uL (4.00-5.60); RDW 13.4 % (11.9-15.9); WHITE BLOOD COUNT 10.3 10^3/uL (4.0-10.8)
[2021-12-12 10:33] LABS: ALBUMIN 4.5 g/dl (3.4-5.0); BILIRUBIN,TOTAL 0.8 mg/dl (0.2-1); CALCIUM 9.4 mg/dl (8.5-10); CREATININE 0.8 mg/dl (0.55-1.3)
[2021-12-12 10:50] VITALS: BMI 20.3
[2021-12-12 11:44] LABS: PLATELET ESTIMATE ADEQUATE
[2021-12-12] MEDS ORDERED: PROCHLORPERAZINE INJECTION 10 MG/2 ML VIAL IVPB ONE (12:32)
[2021-12-12] MEDS ORDERED: PROCHLORPERAZINE INJECTION 10 MG/2 ML VIAL ONE (12:39)
[2021-12-12 13:23] VITALS: BP 147/97; PULSE 98; RESP 18; TEMP 98.8
== END 2021-12-12 14:01 | disposition home or self-care (01) ==
LOC: FER 09:33
PROC: 3E023NZ Introduction of Analgesics, Hypnotics, Sedatives into Muscle, Percutaneous Approach (ICD-10-PCS; principal; 2021-12-12)
PROC: 3E033NZ Introduction of Analgesics, Hypnotics, Sedatives into Peripheral Vein, Percutaneous Approach (ICD-10-PCS; 2021-12-12)
PROC: 3E033GC Introduction of Other Therapeutic Substance into Peripheral Vein, Percutaneous Approach (ICD-10-PCS; 2021-12-12)
DX: R11.2 Nausea with vomiting, unspecified (principal)
CPT/HCPCS: 36415; 71045-TC-FY; 80053; 83690; 85025; 99284-25

== ENCOUNTER 2022-08-22 10:45 | Emergency (ER) | payer OTHER ==
[2022-08-22 10:50] VITALS: BP 147/91; PULSE 83; RESP 18; TEMP 98.7; BMI 20.3
[2022-08-22] MEDS ORDERED: ACETAMINOPHEN 1000 MG/100 ML BAG IVPB ONE (11:10)
[2022-08-22] MEDS ORDERED: SODIUM CHLORIDE 0.9% 1000 ML INFUS.BAG IV ONE (11:10)
[2022-08-22] MEDS ORDERED: ACETAMINOPHEN INJECTION 100 ML IVPB ONE (11:16)
[2022-08-22] MEDS ORDERED: HALOPERIDOL LACTATE 5 MG/ML IM ONE ×2 (11:17→11:28)
[2022-08-22] MEDS ORDERED: FAMOTIDINE 20 MG/50 ML IVPB 20 MG/50 ML MG IVPB ONE ×2 (11:28→11:54)
[2022-08-22] MEDS: FAMOTIDINE 20 MG/50 ML IVPB 20 MG/50 ML MG IVPB ONE ×2 (11:30→11:35)
[2022-08-22 11:53] LABS: HEMATOCRIT 51.1 % (35.4-49); MCHC 35.2 g/dl (32.0-35.9); MEAN CELL VOLUME 102.4 fl (80-96); MEAN PLT VOLUME 6.9 fl (7.5-11.1); PLATELET COUNT 229.6 10^3/uL (134-434); RBC 4.99 10^6/uL (4.00-5.60); RDW 12.3 % (11.9-15.9); WHITE BLOOD COUNT 9.5 10^3/uL (4.0-10.8)
[2022-08-22 12:01] LABS: ALBUMIN 4.5 g/dl (3.4-5.0); BILIRUBIN,TOTAL 0.7 mg/dl (0.2-1); CALCIUM 9.6 mg/dl (8.5-10); CREATININE 0.9 mg/dl (0.55-1.3); TOT PROT 6.9 g/dl (6.4-8.2)
[2022-08-22] MEDS ORDERED: HYDROmorphone HCl 2 MG/ML VIAL IVPUSH ONE (12:12)
[2022-08-22] MEDS ORDERED: HYDROmorphone HCL/PF 1 MG/ML VIAL ONE (12:16)
[2022-08-22] MEDS ORDERED: POTASSIUM CHLORIDE ORAL LIQUID 20 MEQ/15 ML PO ONE (13:11)
[2022-08-22] MEDS ORDERED: POTASSIUM CHLORIDE ORAL LIQUID 20 MEQ/15 ML ONE (13:37)
== END 2022-08-22 15:20 | disposition home or self-care (01) ==
LOC: FER 10:45
PROC: 3E033GC Introduction of Other Therapeutic Substance into Peripheral Vein, Percutaneous Approach (ICD-10-PCS; principal; 2022-08-22)
PROC: 3E033NZ Introduction of Analgesics, Hypnotics, Sedatives into Peripheral Vein, Percutaneous Approach (ICD-10-PCS; 2022-08-22)
PROC: 3E033GC Introduction of Other Therapeutic Substance into Peripheral Vein, Percutaneous Approach (ICD-10-PCS; 2022-08-22)
PROC: 3E023GC Introduction of Other Therapeutic Substance into Muscle, Percutaneous Approach (ICD-10-PCS; 2022-08-22)
DX: R11.2 Nausea with vomiting, unspecified (principal); R10.84 Generalized abdominal pain; Z20.822 Contact with and (suspected) exposure to COVID-19
CPT/HCPCS: 0241U-QW; 36415; 74177-TC; 80053; 83735; 85027; 99285-25; Q9967

== ENCOUNTER 2022-08-25 20:13 | Emergency (ER) | payer OTHER ==
[2022-08-25] MEDS ORDERED: AMOX TR/POT CLAV 875MG/125MG TABLETS (FP) PO ONE ×2 (20:28)
[2022-08-25] MEDS ORDERED: AMOX TR/POT CLAV 875MG/125MG TABLETS (FP) ONE (20:28)
[2022-08-25 20:29] VITALS: BP 132/85; PULSE 102; RESP 16; TEMP 98.1; BMI 20.3
== END 2022-08-25 20:38 | disposition home or self-care (01) ==
LOC: FER 20:13
DX: S61.213A Laceration without foreign body of left middle finger without damage to nail, initial encounter (principal); W26.8XXA Contact with other sharp object(s), not elsewhere classified, initial encounter; Y93.H2 Activity, gardening and landscaping
CPT/HCPCS: 99283-25

== ENCOUNTER 2022-10-02 15:08 | Emergency (ER) | payer OTHER ==
[2022-10-02] MEDS ORDERED: FAMOTIDINE 20 MG/50 ML IVPB 20 MG/50 ML MG IVPB ONE ×2 (15:34→16:29)
[2022-10-02] MEDS ORDERED: LACTATED RINGERS SOLUTION 1000 ML INFUS.BAG IV ONE (15:35)
[2022-10-02 15:38] VITALS: BP 141/99; PULSE 64; RESP 20; TEMP 98.5; BMI 19.6
[2022-10-02 16:45] LABS: HEMATOCRIT 44.2 % (35.4-49); HEMOGLOBIN 15.5 G/dL (11.7-16.9); MCH 36.2 pg (25.7-33.7); MCHC 35.1 g/dl (32.0-35.9); MEAN CELL VOLUME 103.1 fl (80-96); MEAN PLT VOLUME 7.3 fl (7.5-11.1); PLATELET COUNT 183.7 10^3/uL (134-434); RBC 4.29 10^6/uL (4.00-5.60); RDW 12.5 % (11.9-15.9)
[2022-10-02] MEDS ORDERED: ONDANSETRON 4 MG/2 ML VIAL IVPUSH ONE (16:49)
[2022-10-02] MEDS ORDERED: HYDROmorphone HCl 2 MG/ML VIAL IVPB ONE ×2 (16:51→17:49)
[2022-10-02] MEDS ORDERED: ONDANSETRON 4 MG/2 ML VIAL ONE (16:55)
[2022-10-02] MEDS ORDERED: HYDROmorphone HCL/PF 1 MG/ML VIAL ONE ×2 (16:55→17:50)
[2022-10-02 17:14] LABS: ALBUMIN 4.4 g/dl (3.4-5.0); BILIRUBIN,TOTAL 0.4 mg/dl (0.2-1); BLOOD UREA NITROGEN 11.3 mg/dl (7-18); CALCIUM 9.4 mg/dl (8.5-10.1); CREATININE 0.8 mg/dl (0.6-1.3); MAGNESIUM 1.9 mg/dL (1.8-2.4); POTASSIUM 4.1 mmol/L (3.5-5.1); SGOT/AST 19.7 U/L (15-37); SGPT/ALT 21.6 U/L (7-52); TOT PROT 6.2 g/dl (6.4-8.2)
[2022-10-02] MEDS ORDERED: ACETAMINOPHEN 1000 MG/100 ML BAG IVPB ONE (17:19)
[2022-10-02] MEDS ORDERED: ACETAMINOPHEN INJECTION 100 ML IVPB ONE (17:23)
[2022-10-02 18:40] LABS: PLATELET ESTIMATE ADEQUATE
== END 2022-10-02 19:07 | disposition home or self-care (01) ==
LOC: FER 15:08
PROC: 3E033GC Introduction of Other Therapeutic Substance into Peripheral Vein, Percutaneous Approach (ICD-10-PCS; principal; 2022-10-02)
PROC: 3E033NZ Introduction of Analgesics, Hypnotics, Sedatives into Peripheral Vein, Percutaneous Approach (ICD-10-PCS; 2022-10-02)
PROC: 3E033GC Introduction of Other Therapeutic Substance into Peripheral Vein, Percutaneous Approach (ICD-10-PCS; 2022-10-02)
PROC: 3E033GC Introduction of Other Therapeutic Substance into Peripheral Vein, Percutaneous Approach (ICD-10-PCS; 2022-10-02)
PROC: 3E033GC Introduction of Other Therapeutic Substance into Peripheral Vein, Percutaneous Approach (ICD-10-PCS; 2022-10-02)
DX: R11.2 Nausea with vomiting, unspecified (principal)
CPT/HCPCS: 36415; 71045-TC-FY; 80053; 83735; 85027; 99284-25

== ENCOUNTER 2022-10-04 14:45 | Emergency (ER) | payer OTHER ==
[2022-10-04 15:04] VITALS: BP 127/75; PULSE 68; RESP 18; TEMP 97.8; BMI 19.0
== END 2022-10-04 15:30 | disposition left against medical advice (07) ==
LOC: FER 14:45
DX: R55 Syncope and collapse (principal); R11.2 Nausea with vomiting, unspecified; R10.9 Unspecified abdominal pain
CPT/HCPCS: 99283-25; 99284-25

== ENCOUNTER 2023-03-28 01:25 | Emergency (ER) | payer OTHER ==
[2023-03-28 01:32] VITALS: BP 132/93; PULSE 121; RESP 18; TEMP 98.5; BMI 19.0
[2023-03-28] MEDS ORDERED: ONDANSETRON *ODT* 4 MG TABLET SL ONE (01:37)
[2023-03-28] MEDS ORDERED: FAMOTIDINE 20 MG TABLET PO ONE (01:37)
[2023-03-28] MEDS ORDERED: LIDOCAINE VISCOUS 2% ORAL/TOP 15 ML UNIT-DOSE CUP MM ONE (01:38)
[2023-03-28] MEDS ORDERED: MAG HYDROX/AL HYDROX/SIMETH 30 ML UNIT-DOSE CUP PO ONE (01:38)
[2023-03-28] MEDS ORDERED: MAG HYDROX/AL HYDROX/SIMETH 30 ML UNIT-DOSE CUP ONE (01:40)
[2023-03-28] MEDS ORDERED: LIDOCAINE VISCOUS 2% ORAL/TOP 15 ML UNIT-DOSE CUP ONE (01:40)
[2023-03-28] MEDS ORDERED: ONDANSETRON *ODT* 4 MG TABLET ONE (01:40)
[2023-03-28] MEDS ORDERED: FAMOTIDINE 20 MG TABLET ONE (01:40)
[2023-03-28] MEDS ORDERED: ACETAMINOPHEN 325 MG TABLET (FP) PO ONE (01:51)
[2023-03-28] MEDS ORDERED: ACETAMINOPHEN 325 MG TABLET (FP) ONE (01:54)
== END 2023-03-28 02:04 | disposition left against medical advice (07) ==
LOC: FER 01:25
DX: R11.2 Nausea with vomiting, unspecified (principal); R10.9 Unspecified abdominal pain; M62.830 Muscle spasm of back
CPT/HCPCS: 99283-25; Q0162

== ENCOUNTER 2023-04-28 12:44 | Emergency (ER) | payer OTHER ==
[2023-04-28] MEDS ORDERED: LACTATED RINGERS SOLUTION 1,000 ML IV STA (12:49)
[2023-04-28] MEDS ORDERED: ONDANSETRON 4 MG/2 ML VIAL IVPUSH ONE (12:50)
[2023-04-28] MEDS ORDERED: ONDANSETRON 4 MG/2 ML VIAL ONE (13:09)
[2023-04-28] MEDS ORDERED: HYDROmorphone HCl 2 MG/ML VIAL IVPUSH STA (13:38)
[2023-04-28] MEDS ORDERED: HYDROmorphone HCl 2 MG/ML VIAL ONE (13:40)
[2023-04-28 13:59] LABS: HEMOGLOBIN 16.7 G/dL (11.7-16.9); MCH 34.3 pg (25.7-33.7); MCHC 34.2 g/dl (32.0-35.9); MEAN CELL VOLUME 100.4 fl (80-96); MEAN PLT VOLUME 7.6 fl (7.5-11.1); PLATELET COUNT 239.9 10^3/uL (134-434); RBC 4.88 10^6/uL (4.00-5.60); RDW 13.1 % (11.9-15.9); WHITE BLOOD COUNT 12.3 10^3/uL (4.0-10.8)
[2023-04-28 14:09] LABS: ALBUMIN 4.8 g/dl (3.4-5.0); BILIRUBIN,TOTAL 0.3 mg/dl (0.2-1); CALCIUM 9.9 mg/dl (8.5-10.1); CREATININE 0.9 mg/dl (0.6-1.3); MAGNESIUM 2.1 mg/dL (1.8-2.4); PHOSPHOROUS 3.5 (2.5-4.9); POTASSIUM 4.3 mmol/L (3.5-5.1)
[2023-04-28 14:32] LABS: PLATELET ESTIMATE ADEQUATE
[2023-04-28 14:59] VITALS: BP 135/80; PULSE 70; RESP 16; TEMP 98; BMI 19.6
== END 2023-04-28 15:49 | disposition left against medical advice (07) ==
LOC: FER 12:44
PROC: 3E023GC Introduction of Other Therapeutic Substance into Muscle, Percutaneous Approach (ICD-10-PCS; principal; 2023-04-28)
PROC: 3E023GC Introduction of Other Therapeutic Substance into Muscle, Percutaneous Approach (ICD-10-PCS; 2023-04-28)
PROC: 3E0337Z Introduction of Electrolytic and Water Balance Substance into Peripheral Vein, Percutaneous Approach (ICD-10-PCS; 2023-04-28)
DX: R11.14 Bilious vomiting (principal); R10.9 Unspecified abdominal pain
CPT/HCPCS: 36415; 80053; 83605; 83690; 83735; 84100; 85025; 96361; 96374; 96375; 99284-25

== ENCOUNTER 2023-05-01 14:28 | Emergency (ER) | payer OTHER ==
[2023-05-01] MEDS ORDERED: HYDROmorphone HCl 2 MG/ML VIAL IVPUSH ONE ×3 (15:00→19:01)
[2023-05-01] MEDS ORDERED: HALOPERIDOL LACTATE 5 MG/ML IM ONE (15:01)
[2023-05-01] MEDS ORDERED: HYDROmorphone HCL/PF 1 MG/ML VIAL ONE ×2 (15:14→19:06)
[2023-05-01] MEDS ORDERED: HALOPERIDOL LACTATE 5 MG/ML ONE (15:14)
[2023-05-01 15:37] LABS: HEMATOCRIT 50.9 % (35.4-49); HEMOGLOBIN 17.6 G/dL (11.7-16.9); MCH 33.9 pg (25.7-33.7); MCHC 34.5 g/dl (32.0-35.9); MEAN CELL VOLUME 98.3 fl (80-96); MEAN PLT VOLUME 6.6 fl (7.5-11.1); PLATELET COUNT 295.3 10^3/uL (134-434); RBC 5.18 10^6/uL (4.00-5.60); RDW 12.8 % (11.9-15.9); WHITE BLOOD COUNT 14.4 10^3/uL (4.0-10.8)
[2023-05-01 15:39] LABS: PLATELET ESTIMATE ADEQUATE
[2023-05-01 15:46] LABS: ALBUMIN 4.7 g/dl (3.4-5.0); BILIRUBIN,TOTAL 0.5 mg/dl (0.2-1); CALCIUM 9.8 mg/dl (8.5-10.1); CREATININE 0.9 mg/dl (0.6-1.3); POTASSIUM 3.7 mmol/L (3.5-5.1); TOT PROT 6.8 g/dl (6.4-8.2)
[2023-05-01 16:03] VITALS: BP 141/71; PULSE 62; RESP 20; TEMP 98.3; BMI 19.6
[2023-05-01] MEDS ORDERED: ACETAMINOPHEN 120 MG SUPP.RECT PR ONE (19:27)
== END 2023-05-01 20:03 | disposition home or self-care (01) ==
LOC: FER 14:28
PROC: 3E033GC Introduction of Other Therapeutic Substance into Peripheral Vein, Percutaneous Approach (ICD-10-PCS; principal; 2023-05-01)
PROC: 3E033GC Introduction of Other Therapeutic Substance into Peripheral Vein, Percutaneous Approach (ICD-10-PCS; 2023-05-01)
PROC: 3E023GC Introduction of Other Therapeutic Substance into Muscle, Percutaneous Approach (ICD-10-PCS; 2023-05-01)
DX: R11.2 Nausea with vomiting, unspecified (principal); R10.13 Epigastric pain
CPT/HCPCS: 36415; 80053; 83690; 84484; 85027; 99284-25

== ENCOUNTER 2023-05-12 15:14 | Emergency (ER) | payer OTHER ==
[2023-05-12 15:30] VITALS: BP 130/86; PULSE 95; RESP 20; TEMP 99; BMI 19.6
[2023-05-12] MEDS ORDERED: DEXAMETHASONE SOD PHOSPHATE 10 MG/1 ML VIAL IM ONE (15:41)
[2023-05-12] MEDS ORDERED: ALPRAZolam 1 MG TABLET PO PRN (15:42)
[2023-05-12] MEDS ORDERED: ALPRAZolam 0.25 MG TABLET ONE (15:46)
[2023-05-12] MEDS ORDERED: DEXAMETHASONE SOD PHOSPHATE 10 MG/1 ML VIAL ONE (15:46)
[2023-05-12] MEDS: ALBUTEROL SO4 2.5/IPRATROPIUM 0.5 INH SOL 3 ML VIAL.NEB. NEB SCH ×3 (15:55→16:09)
[2023-05-12] MEDS ORDERED: ALBUTEROL SO4 2.5/IPRATROPIUM 0.5 INH SOL 3 ML VIAL.NEB. NEB ONE (16:06)
== END 2023-05-12 16:25 | disposition home or self-care (01) ==
LOC: FER 15:14
PROC: 3E023GC Introduction of Other Therapeutic Substance into Muscle, Percutaneous Approach (ICD-10-PCS; principal; 2023-05-12)
PROC: 3E0F7GC Introduction of Other Therapeutic Substance into Respiratory Tract, Via Natural or Artificial Opening (ICD-10-PCS; 2023-05-12)
DX: J44.9 Chronic obstructive pulmonary disease, unspecified (principal); Z20.822 Contact with and (suspected) exposure to COVID-19
CPT/HCPCS: 0241U-QW; 71046-TC-FY; 99284-25; J1100

== ENCOUNTER 2023-05-13 00:48 | Emergency (ER) | payer OTHER ==
[2023-05-13 00:53] VITALS: BP 138/82; PULSE 84; RESP 22
[2023-05-13] MEDS ORDERED: ONDANSETRON *ODT* 4 MG TABLET ONE (00:58)
[2023-05-13 01:08] VITALS: BMI 22.4
== END 2023-05-13 01:09 | disposition left against medical advice (07) ==
LOC: FER 00:48
DX: R11.2 Nausea with vomiting, unspecified (principal); J44.1 Chronic obstructive pulmonary disease with (acute) exacerbation
CPT/HCPCS: 99281-25

== ENCOUNTER 2023-07-06 18:13 | Emergency (ER) | payer OTHER ==
[2023-07-06 18:29] VITALS: BP 140/85; PULSE 110; RESP 22; TEMP 98.3; BMI 19.0
[2023-07-06] MEDS ORDERED: ONDANSETRON 4 MG/2 ML VIAL ONE (19:51)
[2023-07-06] MEDS ORDERED: FAMOTIDINE 20 MG/50 ML IVPB 20 MG/50 ML MG IVPB ONE (19:52)
[2023-07-06] MEDS: FAMOTIDINE 20 MG/50 ML IVPB 20 MG/50 ML MG IVPB ONE (20:10)
[2023-07-06] MEDS ORDERED: HYDROmorphone HCL/PF 1 MG/ML VIAL ONE ×2 (20:14→20:59)
[2023-07-06] MEDS: ONDANSETRON 4 MG/2 ML VIAL IVPUSH ONE (20:15)
[2023-07-06] MEDS: HYDROmorphone HCl 2 MG/ML VIAL IVPB ONE ×2 (20:15→21:03)
[2023-07-06] MEDS ORDERED: ACETAMINOPHEN INJECTION 100 ML IVPB ONE (20:21)
[2023-07-06] MEDS: ACETAMINOPHEN 1000 MG/100 ML BAG IVPB ONE (20:25)
== END 2023-07-06 21:20 | disposition home or self-care (01) ==
LOC: FER 18:13
PROC: 3E033GC Introduction of Other Therapeutic Substance into Peripheral Vein, Percutaneous Approach (ICD-10-PCS; principal; 2023-07-06)
PROC: 3E033NZ Introduction of Analgesics, Hypnotics, Sedatives into Peripheral Vein, Percutaneous Approach (ICD-10-PCS; 2023-07-06)
PROC: 3E033NZ Introduction of Analgesics, Hypnotics, Sedatives into Peripheral Vein, Percutaneous Approach (ICD-10-PCS; 2023-07-06)
PROC: 3E033NZ Introduction of Analgesics, Hypnotics, Sedatives into Peripheral Vein, Percutaneous Approach (ICD-10-PCS; 2023-07-06)
PROC: 3E033NZ Introduction of Analgesics, Hypnotics, Sedatives into Peripheral Vein, Percutaneous Approach (ICD-10-PCS; 2023-07-06)
DX: M62.830 Muscle spasm of back (principal); R11.2 Nausea with vomiting, unspecified; R10.13 Epigastric pain; M54.6 Pain in thoracic spine; K20.0 Eosinophilic esophagitis
CPT/HCPCS: 99284-25; J0131

== ENCOUNTER 2023-07-07 10:12 | Emergency (ER) | payer OTHER ==
[2023-07-07 10:30] VITALS: BP 140/83; PULSE 90; RESP 22; TEMP 98.3; BMI 19.0
[2023-07-07] MEDS ORDERED: HALOPERIDOL LACTATE 5 MG/ML ONE (10:30)
[2023-07-07] MEDS: HALOPERIDOL LACTATE 5 MG/ML IM ONE (10:33)
== END 2023-07-07 12:32 | disposition home or self-care (01) ==
LOC: FER 10:12
PROC: 3E023GC Introduction of Other Therapeutic Substance into Muscle, Percutaneous Approach (ICD-10-PCS; principal; 2023-07-07)
DX: R11.2 Nausea with vomiting, unspecified (principal); M54.50 Low back pain, unspecified; G89.29 Other chronic pain
CPT/HCPCS: 99284-25

== ENCOUNTER 2023-07-07 21:42 | Emergency (ER) | payer OTHER | END 2023-07-07 22:43 | disposition left against medical advice (07) | LOC: FER 21:42 | DX: Z53.21 Procedure and treatment not carried out due to patient leaving prior to being seen by health care provider (principal) | CPT/HCPCS: 99281-25 ==

== ENCOUNTER 2023-07-08 09:41 | Emergency (ER) | payer OTHER ==
[2023-07-08 09:52] VITALS: BP 146/92; PULSE 108; RESP 18; TEMP 98.3; BMI 19.6
[2023-07-08] MEDS ORDERED: ALBUTEROL SO4 2.5/IPRATROPIUM 0.5 INH SOL 3 ML VIAL.NEB. NEB ONE (09:53)
[2023-07-08] MEDS ORDERED: predniSONE 20 MG TABLET (UD) ONE (09:58)
[2023-07-08] MEDS: predniSONE 20 MG TABLET (UD) PO ONE (10:02)
[2023-07-08] MEDS ORDERED: DEXAMETHASONE SOD PHOSPHATE 10 MG/1 ML VIAL ONE (10:03)
[2023-07-08] MEDS: ALBUTEROL SO4 2.5/IPRATROPIUM 0.5 INH SOL 3 ML VIAL.NEB. NEB SCH (10:17)
[2023-07-08] MEDS: DEXAMETHASONE SOD PHOSPHATE 10 MG/1 ML VIAL IM ONE (10:18)
== END 2023-07-08 10:48 | disposition left against medical advice (07) ==
LOC: FER 09:41
PROC: 3E023GC Introduction of Other Therapeutic Substance into Muscle, Percutaneous Approach (ICD-10-PCS; principal; 2023-07-08)
PROC: 3E0F7GC Introduction of Other Therapeutic Substance into Respiratory Tract, Via Natural or Artificial Opening (ICD-10-PCS; 2023-07-08)
DX: R06.02 Shortness of breath (principal); R06.2 Wheezing; J44.9 Chronic obstructive pulmonary disease, unspecified
CPT/HCPCS: 99284-25; J1100

== ENCOUNTER 2023-07-12 23:32 | Emergency (ER) | payer OTHER ==
[2023-07-12 23:40] VITALS: BP 121/83; PULSE 113; RESP 18; TEMP 98; BMI 19.6
[2023-07-13] MEDS ORDERED: LIDOCAINE VISCOUS 2% ORAL/TOP 100 ML BOTTLE ONE
[2023-07-13] MEDS: LIDOCAINE VISCOUS 2% ORAL/TOP 15 ML UNIT-DOSE CUP MM ONE (00:01)
== END 2023-07-13 00:09 | disposition home or self-care (01) ==
LOC: FER 23:32
DX: K14.8 Other diseases of tongue (principal); B37.0 Candidal stomatitis
CPT/HCPCS: 99283-25

== ENCOUNTER 2024-02-27 07:18 | Emergency (ER) | payer OTHER ==
[2024-02-27 07:23] VITALS: BP 113/79; PULSE 88; RESP 18; TEMP 97.9; BMI 17.3
[2024-02-27] MEDS ORDERED: ACETAMINOPHEN 500 MG TABLET (FP) ONE (07:33)
[2024-02-27] MEDS: ACETAMINOPHEN 500 MG TABLET (FP) PO ONE (07:38)
== END 2024-02-27 08:35 | disposition home or self-care (01) ==
LOC: FER 07:18
DX: S49.92XA Unspecified injury of left shoulder and upper arm, initial encounter (principal); V86.56XA Driver of dirt bike or motor/cross bike injured in nontraffic accident, initial encounter; Y92.410 Unspecified street and highway as the place of occurrence of the external cause
CPT/HCPCS: 73030-TC-LT-FY; 99283-25

== ENCOUNTER 2024-08-24 21:23 | Emergency (ER) | payer OTHER ==
[2024-08-24] MEDS: HALOPERIDOL LACTATE 5 MG/ML IM ONE (21:30)
[2024-08-24] MEDS ORDERED: HALOPERIDOL LACTATE 5 MG/ML ONE (21:33)
[2024-08-24] MEDS ORDERED: LORazepam 2 MG/ML SDV VIAL ONE (21:33)
[2024-08-24 21:43] VITALS: BP 127/104; PULSE 114; RESP 24; TEMP 98.1; BMI 19.5
[2024-08-24] MEDS ORDERED: MAG HYDROX/AL HYDROX/SIMETH 30 ML UNIT-DOSE CUP ONE (21:44)
[2024-08-24] MEDS: MAG HYDROX/AL HYDROX/SIMETH 30 ML UNIT-DOSE CUP PO ONE (21:48)
== END 2024-08-24 22:00 | disposition left against medical advice (07) ==
LOC: FER 21:23
PROC: 3E023GC Introduction of Other Therapeutic Substance into Muscle, Percutaneous Approach (ICD-10-PCS; principal; 2024-08-24)
PROC: 3E023GC Introduction of Other Therapeutic Substance into Muscle, Percutaneous Approach (ICD-10-PCS; 2024-08-24)
DX: F41.9 Anxiety disorder, unspecified (principal); R45.1 Restlessness and agitation
CPT/HCPCS: 90853; 99284-25